=== PATIENT | female | born 1990 ===

== ENCOUNTER 2023-09-28 14:48 | Outpatient (REF) | payer MEDICAID, SELFPAY ==
--- NOTE | ~2023-09-28 | US_ITS ---
EXAMINATION: US PELVIS CLINICAL INFORMATION: Dysmenorrhea. Last menstrual period 09/07/2023. COMPARISON: None available. TECHNIQUE: Ultrasound of the pelvis is performed using both transabdominal and transvaginal transducers along with Doppler. Transvaginal imaging is performed due to inadequate visualization transabdominally. FINDINGS: The uterus is anteverted, heterogeneous and measures 11.0 x 4.7 x 6.3 cm. No discrete fibroids are identified. Nabothian cysts are present. Trace amount of free fluid in the pelvis. Endometrial thickness is 1.4 cm. Endometrium is heterogeneously echogenic Right ovary measures 3.9 x 2.1 x 2.8 cm, volume 120 mL. Right ovarian complex cyst with thick avalos measures 1.8 x 1.4 x 1.7 cm, possibly representing an involuting corpus luteum. Left ovary measures 3.1 x 2.1 x 2.0 cm, volume 6.8 mL. Left ovarian 1.3 x 1.0 x 0.9 cm exophytic cyst versus paraovarian cyst. There is no indication for follow-up imaging. US/US pelvic and transvaginal IMPRESSION: 1. Heterogeneous uterus. No discrete fibroids 2. Endometrial thickness is 1.4 cm. 3. Trace amount of free fluid in the pelvis.
== END 2023-09-28 14:49 | disposition home or self-care (01) ==
LOC: HO.US 14:48
PROVIDERS: PCP Pediatrics; Visit Provider Pediatrics
DX: N94.6 Dysmenorrhea, unspecified (principal)
CPT/HCPCS: 76830; 76856